=== PATIENT | male | born 1940 | race Caucasian/White ===

== ENCOUNTER 2016-12-31 21:13 | Outpatient (CLI) | payer MEDICARE, OTHER | END 2016-12-31 21:14 | disposition home or self-care (01) | DX: I48.91 Unspecified atrial fibrillation (principal); E03.9 Hypothyroidism, unspecified; E11.9 Type 2 diabetes mellitus without complications; I25.10 Atherosclerotic heart disease of native coronary artery without angina pectoris; N18.9 Chronic kidney disease, unspecified; E78.5 Hyperlipidemia, unspecified; I12.9 Hypertensive chronic kidney disease with stage 1 through stage 4 chronic kidney disease, or unspecified chronic kidney disease ==

== ENCOUNTER 2017-03-03 08:00 | Outpatient (CLI) | payer MEDICARE, OTHER | END 2017-03-03 08:01 | disposition home or self-care (01) | DX: I35.0 Nonrheumatic aortic (valve) stenosis (principal); R79.89 Other specified abnormal findings of blood chemistry ==

== ENCOUNTER 2017-07-16 13:06 | Outpatient (CLI) | payer MEDICARE, OTHER ==
[2017-07-16 13:25] LABS: ALBUMIN/GLOBULIN RATIO 1.1 (1.0-2.2); BILIRUBIN,TOTAL 0.6 mg/dL (0.2-1.0); BUN - BLOOD UREA NITROGEN 50 mg/dL (6-20); CARBON DIOXIDE - CO2 22 mmol/L (21-32); CHLORIDE 111 mmol/L (101-111); CHOL/HDL RATIO 2.3 (<5.0); CHOLESTEROL 68 mg/dL; GFR - MDRD 32 (>89); GLUCOSE 120 mg/dL (70-100); HDL CHOLESTEROL 30 mg/dL; LDL/HDL RATIO 0.7 (<3.6); POTASSIUM 4.3 mmol/L (3.5-5.0); SODIUM 139 mmol/L (135-145); TOTAL PROTEIN 6.6 g/dL (6.7-8.2); TRIGLYCERIDES 80 mg/dL; VLDL CHOLESTEROL 16 mg/dL
[2017-07-16 13:27] LABS: HEMOGLOBIN A1C 0.43 g/dL
[2017-07-16 15:01] LABS: BASOPHILS % (AUTO) 0.5 %; EOSINOPHILS # (AUTO) 0.2 10^3/uL (0.0-0.7); EOSINOPHILS % (AUTO) 4.1 %; HCT - HEMATOCRIT 34.2 % (42.0-52.0); HGB - HEMOGLOBIN 11.2 g/dL (14.0-18.0); LYMPHOCYTES # (AUTO) 1.3 10^3/uL (1.5-3.5); MEAN CORPUSCULAR HEMOGLOBIN 32.8 pg (27.0-31.0); MEAN CORPUSCULAR HGB CONC 32.6 g/dL (32.0-36.0); MEAN CORPUSCULAR VOLUME 100.7 fL (80.0-94.0); MEAN PLATELET VOLUME 10.9 fL (7.4-11.4); MONOCYTES # (AUTO) 0.5 10^3/uL (0.0-1.0); MONOCYTES % (AUTO) 11.4 %; NEUTROPHILS # (AUTO) 2.4 10^3/uL (1.5-6.6); NUCLEATED RED BLOOD CELLS AUTO 0.2 /100WBC; RED CELL DISTRIBUTION WIDTH 16.8 % (12.0-15.0); UNCORRECTED WHITE BLOOD COUNT 4.4 x10^3/uL; WHITE BLOOD COUNT 4.4 x10^3/uL (4.8-10.8)
== END 2017-07-16 13:07 | disposition home or self-care (01) ==
LOC: LAB.WCP 13:06
PROVIDERS: ATTEND Family Medicine
DX: I48.91 Unspecified atrial fibrillation (principal); E11.9 Type 2 diabetes mellitus without complications; N18.9 Chronic kidney disease, unspecified; E03.9 Hypothyroidism, unspecified; E78.5 Hyperlipidemia, unspecified; I12.9 Hypertensive chronic kidney disease with stage 1 through stage 4 chronic kidney disease, or unspecified chronic kidney disease
CPT/HCPCS: 36415; 80053; 80061; 83036; 84443; 85025

== ENCOUNTER 2017-08-13 09:07 | Outpatient (CLI) | payer MEDICARE, OTHER ==
[2017-08-13 13:09] LABS: BILIRUBIN,DIRECT 0.1 mg/dL (0.1-0.5); BILIRUBIN,TOTAL 0.6 mg/dL (0.2-1.0)
== END 2017-08-13 09:08 | disposition home or self-care (01) ==
LOC: LAB.WCP 09:07
PROVIDERS: ATTEND Family Medicine
DX: R74.8 Abnormal levels of other serum enzymes (principal)
CPT/HCPCS: 36415; 80076

== ENCOUNTER 2017-11-13 08:00 | Outpatient (CLI) | payer MEDICARE, OTHER ==
[2017-11-13 12:44] LABS: ALBUMIN 4.2 g/dL (3.2-5.5); ALBUMIN/GLOBULIN RATIO 1.2 (1.0-2.2); BILIRUBIN,TOTAL 0.9 mg/dL (0.2-1.0); CALCIUM 9.4 mg/dL (8.5-10.3); CREATININE 2.5 mg/dL (0.6-1.2); TOTAL PROTEIN 7.6 g/dL (6.7-8.2)
[2017-11-13 13:17] LABS: HB2 TOTAL 12.4 g/dL; HEMOGLOBIN A1C 0.43 g/dL; HEMOGLOBIN A1C % 5.3 % (4.6-6.2)
== END 2017-11-13 08:01 | disposition home or self-care (01) ==
LOC: LAB.WCP 08:00
PROVIDERS: ATTEND Family Medicine
DX: R74.8 Abnormal levels of other serum enzymes (principal); E11.9 Type 2 diabetes mellitus without complications; I48.91 Unspecified atrial fibrillation; E03.9 Hypothyroidism, unspecified; I10 Essential (primary) hypertension
CPT/HCPCS: 36415; 80053; 83036; 84443

== ENCOUNTER 2017-11-18 14:37 | Outpatient (CLI) | payer MEDICARE, OTHER ==
[2017-11-18 19:14] LABS: CALCIUM 9.5 mg/dL (8.5-10.3); CREATININE 2.1 mg/dL (0.6-1.2)
== END 2017-11-18 14:38 | disposition home or self-care (01) ==
LOC: LAB.WCP 14:37
PROVIDERS: ATTEND Family Medicine
DX: N18.9 Chronic kidney disease, unspecified (principal)
CPT/HCPCS: 36415; 80048

== ENCOUNTER 2017-12-19 10:39 | Outpatient (CLI) | payer MEDICARE, OTHER ==
[2017-12-19 12:40] LABS: HGB - HEMOGLOBIN 11.1 g/dL (14.0-18.0); MEAN CORPUSCULAR HEMOGLOBIN 32.2 pg (27.0-31.0); MEAN CORPUSCULAR HGB CONC 33.1 g/dL (32.0-36.0); MEAN CORPUSCULAR VOLUME 97.4 fL (80.0-94.0); MEAN PLATELET VOLUME 10.7 fL (7.4-11.4); RED BLOOD COUNT 3.45 10^6/uL (4.70-6.10); RED CELL DISTRIBUTION WIDTH 15.6 % (12.0-15.0); WHITE BLOOD COUNT 5.7 x10^3/uL (4.8-10.8)
[2017-12-19 12:58] LABS: CREATININE,URINE 77.7 mg/dL; PROTEIN/CREATININE RATIO,URINE 0.2 (<=0.2)
== END 2017-12-19 10:40 | disposition home or self-care (01) ==
LOC: LAB.WCP 10:39
PROVIDERS: ATTEND Internal Medicine Nephrology
DX: D70.9 Neutropenia, unspecified (principal); D63.1 Anemia in chronic kidney disease; R80.9 Proteinuria, unspecified
CPT/HCPCS: 36415; 82570; 84156

== ENCOUNTER 2018-01-21 13:35 | Outpatient (CLI) | payer MEDICARE, OTHER ==
--- NOTE | 2018-01-21 16:37 | XRAY Report ---
ABDOMEN ONE VIEW: 01/21/2018 HISTORY: Ureteral stent followup. COMPARISON: 12/26/[address] FINDINGS: There is a left ureteral stent extending from the region of the left renal pelvis to the urinary bladder. Multiple surgical clips are seen in the abdomen. Vascular calcification is present. Degenerative change in the spine. Minor degenerative change in the hips and sacroiliac joints. Extensive fecal material throughout the colon. IMPRESSION: LEFT URETERAL STENT IN PLACE. TD: 01/21/2018 16:35
== END 2018-01-21 13:36 | disposition home or self-care (01) ==
LOC: DI 13:35
PROVIDERS: ATTEND Specialist
DX: N13.8 Other obstructive and reflux uropathy (principal)
CPT/HCPCS: 74018

== ENCOUNTER 2018-05-20 08:00 | Outpatient (CLI) | payer MEDICARE, OTHER ==
[2018-05-20 12:34] LABS: BASOPHILS % (AUTO) 0.6 %; EOSINOPHILS # (AUTO) 0.2 10^3/uL (0.0-0.7); EOSINOPHILS % (AUTO) 3.8 %; HGB - HEMOGLOBIN 11.3 g/dL (14.0-18.0); LYMPHOCYTES # (AUTO) 1.6 10^3/uL (1.5-3.5); LYMPHOCYTES % (AUTO) 25.3 %; MEAN CORPUSCULAR HEMOGLOBIN 33.2 pg (27.0-31.0); MEAN CORPUSCULAR HGB CONC 33.2 g/dL (32.0-36.0); MEAN CORPUSCULAR VOLUME 99.8 fL (80.0-94.0); MEAN PLATELET VOLUME 11.1 fL (7.4-11.4); MONOCYTES # (AUTO) 0.7 10^3/uL (0.0-1.0); MONOCYTES % (AUTO) 10.2 %; NEUTROPHILS # (AUTO) 3.9 10^3/uL (1.5-6.6); NEUTROPHILS % (AUTO) 60.1 %; PLT - PLATELET COUNT 132 10^3/uL (130-450); RED BLOOD COUNT 3.42 10^6/uL (4.70-6.10); WHITE BLOOD COUNT 6.4 x10^3/uL (4.8-10.8)
[2018-05-20 13:07] LABS: ALBUMIN 3.9 g/dL (3.2-5.5); ALBUMIN/GLOBULIN RATIO 1.1 (1.0-2.2); ALKALINE PHOSPHATASE 32 IU/L (42-121); ALT ALANINE AMINOTRANSFERASE 11 IU/L (10-60); AST ASPARTATE AMINOTRANSFERASE 27 IU/L (10-42); BILIRUBIN,TOTAL 0.5 mg/dL (0.2-1.0); BUN - BLOOD UREA NITROGEN 47 mg/dL (6-20); CALCIUM 9.6 mg/dL (8.5-10.3); CARBON DIOXIDE - CO2 23 mmol/L (21-32); CHLORIDE 110 mmol/L (101-111); CHOL/HDL RATIO 4.1 (<5.0); CHOLESTEROL 120 mg/dL; CREATININE 2.2 mg/dL (0.6-1.2); GFR - MDRD 29 (>89); GLUCOSE 95 mg/dL (70-100); HDL CHOLESTEROL 29 mg/dL; LDL CHOLESTEROL,CALCULATED 49 mg/dL; LDL/HDL RATIO 1.7 (<3.6); SODIUM 140 mmol/L (135-145); TOTAL PROTEIN 7.3 g/dL (6.7-8.2); VLDL CHOLESTEROL 42 mg/dL
[2018-05-20 13:38] LABS: HB2 TOTAL 11.6 g/dL; HEMOGLOBIN A1C 0.41 g/dL; HEMOGLOBIN A1C % 5.4 % (4.6-6.2)
== END 2018-05-20 08:01 ==
LOC: LAB.WCP 08:00
PROVIDERS: ATTEND Family Medicine
DX: E11.9 Type 2 diabetes mellitus without complications (principal); E03.9 Hypothyroidism, unspecified; E78.5 Hyperlipidemia, unspecified; I10 Essential (primary) hypertension
CPT/HCPCS: 36415; 80053; 80061; 83036; 83721; 84443; 85025

== ENCOUNTER 2018-06-18 13:42 | Outpatient (CLI) | payer MEDICARE, OTHER ==
[2018-06-18 18:50] LABS: HGB - HEMOGLOBIN 12.1 g/dL (14.0-18.0); MEAN CORPUSCULAR HEMOGLOBIN 32.7 pg (27.0-31.0); MEAN CORPUSCULAR HGB CONC 33.1 g/dL (32.0-36.0); MEAN PLATELET VOLUME 11.1 fL (7.4-11.4); RED BLOOD COUNT 3.69 10^6/uL (4.70-6.10); RED CELL DISTRIBUTION WIDTH 14.6 % (12.0-15.0); WHITE BLOOD COUNT 5.5 x10^3/uL (4.8-10.8)
[2018-06-18 19:17] LABS: CALCIUM 9.3 mg/dL (8.5-10.3); CREATININE 1.9 mg/dL (0.6-1.2); PHOSPHORUS 3.1 mg/dL (2.5-4.6)
== END 2018-06-18 13:43 | disposition home or self-care (01) ==
LOC: LAB.WCP 13:42
PROVIDERS: ATTEND Internal Medicine Nephrology
DX: N05.9 Unspecified nephritic syndrome with unspecified morphologic changes (principal); D70.9 Neutropenia, unspecified; D63.1 Anemia in chronic kidney disease; E83.30 Disorder of phosphorus metabolism, unspecified; N25.81 Secondary hyperparathyroidism of renal origin
CPT/HCPCS: 36415; 80048; 83970; 84100; 85027

== ENCOUNTER 2018-11-16 08:05 | Outpatient (CLI) | payer MEDICARE, OTHER ==
[2018-11-16 13:05] LABS: BASOPHILS % (AUTO) 0.6 %; EOSINOPHILS # (AUTO) 0.2 10^3/uL (0.0-0.7); EOSINOPHILS % (AUTO) 3.5 %; HGB - HEMOGLOBIN 11.8 g/dL (14.0-18.0); LYMPHOCYTES # (AUTO) 1.7 10^3/uL (1.5-3.5); LYMPHOCYTES % (AUTO) 24.6 %; MEAN CORPUSCULAR HEMOGLOBIN 32.7 pg (27.0-31.0); MEAN CORPUSCULAR HGB CONC 33.7 g/dL (32.0-36.0); MEAN PLATELET VOLUME 10.3 fL (7.4-11.4); MONOCYTES # (AUTO) 0.7 10^3/uL (0.0-1.0); MONOCYTES % (AUTO) 9.7 %; NEUTROPHILS # (AUTO) 4.3 10^3/uL (1.5-6.6); NEUTROPHILS % (AUTO) 61.6 %; PLT - PLATELET COUNT 159 10^3/uL (130-450); RED CELL DISTRIBUTION WIDTH 14.2 % (12.0-15.0)
[2018-11-16 13:27] LABS: ALBUMIN 3.8 g/dL (3.2-5.5); ALKALINE PHOSPHATASE 47 IU/L (42-121); ALT ALANINE AMINOTRANSFERASE 14 IU/L (10-60); AST ASPARTATE AMINOTRANSFERASE 29 IU/L (10-42); BILIRUBIN,TOTAL 0.4 mg/dL (0.2-1.0); BUN - BLOOD UREA NITROGEN 54 mg/dL (6-20); CALCIUM 9.3 mg/dL (8.5-10.3); CARBON DIOXIDE - CO2 23 mmol/L (21-32); CHLORIDE 108 mmol/L (101-111); CHOL/HDL RATIO 3.3 (<5.0); CHOLESTEROL 118 mg/dL; GFR - MDRD 32 (>89); GLUCOSE 105 mg/dL (70-100); HDL CHOLESTEROL 36 mg/dL; LDL CHOLESTEROL,CALCULATED 53 mg/dL; LDL/HDL RATIO 1.5 (<3.6); SODIUM 138 mmol/L (135-145); TOTAL PROTEIN 7.6 g/dL (6.7-8.2); VLDL CHOLESTEROL 29 mg/dL
[2018-11-16 13:54] LABS: HB2 TOTAL 12.7 g/dL; HEMOGLOBIN A1C 0.46 g/dL; HEMOGLOBIN A1C % 5.5 % (4.6-6.2)
== END 2018-11-16 23:59 | disposition home or self-care (01) ==
LOC: LAB.WCP 08:05
PROVIDERS: ATTEND Family Medicine
DX: R74.8 Abnormal levels of other serum enzymes (principal); E11.9 Type 2 diabetes mellitus without complications; E78.5 Hyperlipidemia, unspecified; E03.9 Hypothyroidism, unspecified; I48.91 Unspecified atrial fibrillation
CPT/HCPCS: 36415; 80053; 80061; 82043; 83036; 83721; 84443; 85025

== ENCOUNTER 2019-04-07 08:45 | Outpatient (CLI) | payer MEDICARE, OTHER ==
[2019-04-07 12:28] LABS: BASOPHILS % (AUTO) 0.4 %; EOSINOPHILS # (AUTO) 0.3 10^3/uL (0.0-0.7); EOSINOPHILS % (AUTO) 4.5 %; HGB - HEMOGLOBIN 9.8 g/dL (14.0-18.0); LYMPHOCYTES # (AUTO) 1.5 10^3/uL (1.5-3.5); LYMPHOCYTES % (AUTO) 21.1 %; MEAN CORPUSCULAR HEMOGLOBIN 30.2 pg (27.0-31.0); MEAN CORPUSCULAR HGB CONC 29.9 g/dL (32.0-36.0); MEAN CORPUSCULAR VOLUME 101.2 fL (80.0-94.0); MEAN PLATELET VOLUME 12.7 fL (7.4-11.4); MONOCYTES # (AUTO) 0.9 10^3/uL (0.0-1.0); MONOCYTES % (AUTO) 12.6 %; NEUTROPHILS # (AUTO) 4.4 10^3/uL (1.5-6.6); PLT - PLATELET COUNT 167 10^3/uL (130-450); RED BLOOD COUNT 3.24 10^6/uL (4.70-6.10); RED CELL DISTRIBUTION WIDTH 14.6 % (12.0-15.0); WHITE BLOOD COUNT 7.2 x10^3/uL (4.8-10.8)
[2019-04-07 12:46] LABS: ALBUMIN 3.6 g/dL (3.2-5.5); ALBUMIN/GLOBULIN RATIO 0.9 (1.0-2.2); ALKALINE PHOSPHATASE 39 IU/L (42-121); ALT ALANINE AMINOTRANSFERASE 14 IU/L (10-60); AST ASPARTATE AMINOTRANSFERASE 24 IU/L (10-42); BILIRUBIN,TOTAL 0.6 mg/dL (0.2-1.0); BUN - BLOOD UREA NITROGEN 61 mg/dL (6-20); CALCIUM 9.2 mg/dL (8.5-10.3); CARBON DIOXIDE - CO2 23 mmol/L (21-32); CHLORIDE 105 mmol/L (101-111); CHOL/HDL RATIO 3.6 (<5.0); CHOLESTEROL 111 mg/dL; GFR - MDRD 20 (>89); GLUCOSE 105 mg/dL (70-100); HDL CHOLESTEROL 31 mg/dL; LDL CHOLESTEROL,CALCULATED 38 mg/dL; LDL/HDL RATIO 1.2 (<3.6); SODIUM 142 mmol/L (135-145); TOTAL PROTEIN 7.6 g/dL (6.7-8.2); VLDL CHOLESTEROL 42 mg/dL
[2019-04-07 12:55] LABS: CREATININE,URINE 113.8 mg/dL; MICROALBUM/CREATININE RATIO,UR 96.7 ug/mg (<30.0)
[2019-04-07 12:59] LABS: HB2 TOTAL 10.3 g/dL; HEMOGLOBIN A1C 0.44 g/dL; HEMOGLOBIN A1C % 6.1 % (4.6-6.2)
[2019-04-07 13:34] LABS: FREE T4 (FREE THYROXINE) 0.91 ng/dL (0.58-1.64)
== END 2019-04-07 08:46 | disposition home or self-care (01) ==
LOC: LAB.WCP 08:45
PROVIDERS: ATTEND Family Medicine
DX: E11.29 Type 2 diabetes mellitus with other diabetic kidney complication (principal); I12.9 Hypertensive chronic kidney disease with stage 1 through stage 4 chronic kidney disease, or unspecified chronic kidney disease; N18.9 Chronic kidney disease, unspecified; E78.5 Hyperlipidemia, unspecified; E03.9 Hypothyroidism, unspecified
CPT/HCPCS: 36415; 80053; 80061; 82043; 82570; 83036; 83721; 84439; 84443; 85025

== ENCOUNTER 2019-04-16 13:18 | Outpatient (CLI) | payer MEDICARE, OTHER ==
[2019-04-16 19:23] LABS: ALBUMIN 3.6 g/dL (3.2-5.5); BILIRUBIN,TOTAL 0.4 mg/dL (0.2-1.0); CALCIUM 9.2 mg/dL (8.5-10.3); TOTAL PROTEIN 7.2 g/dL (6.7-8.2)
== END 2019-04-16 13:19 | disposition home or self-care (01) ==
LOC: LAB.WCP 13:18
PROVIDERS: ATTEND Family Medicine
DX: I12.9 Hypertensive chronic kidney disease with stage 1 through stage 4 chronic kidney disease, or unspecified chronic kidney disease (principal); N18.9 Chronic kidney disease, unspecified
CPT/HCPCS: 36415; 80053

== ENCOUNTER 2019-05-17 15:00 | Outpatient (CLI) | payer MEDICARE, OTHER ==
[2019-05-17 19:48] LABS: FREE T4 (FREE THYROXINE) 0.87 ng/dL (0.58-1.64)
== END 2019-05-17 23:59 | disposition home or self-care (01) ==
LOC: LAB.WCP 15:00
PROVIDERS: ATTEND Family Medicine
DX: E03.9 Hypothyroidism, unspecified (principal)
CPT/HCPCS: 36415; 84439; 84443

== ENCOUNTER 2019-05-31 08:59 | Outpatient (CLI) | payer MEDICARE, OTHER ==
[2019-05-31 12:48] LABS: CALCIUM 9.3 mg/dL (8.5-10.3); CREATININE 1.5 mg/dL (0.6-1.2); PHOSPHORUS 3.1 mg/dL (2.5-4.6)
== END 2019-05-31 23:59 | disposition home or self-care (01) ==
LOC: LAB.WCP 08:59
PROVIDERS: ATTEND Internal Medicine Nephrology
DX: N05.9 Unspecified nephritic syndrome with unspecified morphologic changes (principal); E83.30 Disorder of phosphorus metabolism, unspecified; N25.81 Secondary hyperparathyroidism of renal origin
CPT/HCPCS: 36415; 80048; 83970; 84100

== ENCOUNTER 2019-06-17 08:00 | Outpatient (CLI) | payer MEDICARE, OTHER ==
[2019-06-17 20:18] LABS: FREE T4 (FREE THYROXINE) 0.88 ng/dL (0.58-1.64)
== END 2019-06-17 23:59 | disposition home or self-care (01) ==
LOC: LAB.WCP 08:00
PROVIDERS: ATTEND Family Medicine
DX: E03.9 Hypothyroidism, unspecified (principal)
CPT/HCPCS: 36415; 84439; 84443

== ENCOUNTER 2019-06-30 16:38 | Outpatient (CLI) | payer MEDICARE, OTHER ==
--- NOTE | 2019-07-01 10:50 | XRAY Report ---
Reason: OTHER OBSTRUCTIVE DEFECTS OF RENAL PELVIS AND URET Procedure Date: 06/30/2019 Accession Number: [id number] / [id number] Procedure: XR - Abdomen 1 View X-Ray CPT Code: 31259 FULL RESULT: EXAM: ABDOMEN RADIOGRAPHY EXAM DATE: 06/30/2019 05:02 PM. CLINICAL HISTORY: Other obstructive defects of renal pelvis and ureter. COMPARISON: ABDOMEN 1 VIEW 01/21/2018 2:04 PM. TECHNIQUE: 1 view. FINDINGS: Bowel Gas Pattern: Within normal limits. No dilated loops. Other: Left ureteral stent in place. No definitive stone disease with surgical clips noted. Left common iliac vascular stent. IMPRESSION: Left ureteral stent in place. RADIA
== END 2019-06-30 16:39 | disposition home or self-care (01) ==
LOC: DI 16:38
PROVIDERS: ATTEND Specialist
DX: N18.9 Chronic kidney disease, unspecified (principal); Q62.39 Other obstructive defects of renal pelvis and ureter
CPT/HCPCS: 74018

== ENCOUNTER 2019-12-20 08:00 | Outpatient (CLI) | payer MEDICARE, OTHER ==
[2019-12-20 13:07] LABS: HB2 TOTAL 11.6 g/dL; HEMOGLOBIN A1C 0.6 g/dL; HEMOGLOBIN A1C % 6.9 % (4.6-6.2)
[2019-12-20 13:53] LABS: CALCIUM 9.3 mg/dL (8.5-10.3); CREATININE 2.6 mg/dL (0.6-1.2)
[2019-12-20 14:35] LABS: CREATININE,URINE 49.9 mg/dL; MICROALBUM/CREATININE RATIO,UR 2376.8 ug/mg (<30.0); MICROALBUMIN,URINE 118.6 mg/dL (0-300.0)
== END 2019-12-20 23:59 | disposition home or self-care (01) ==
LOC: LAB.WCP 08:00
PROVIDERS: ATTEND Family Medicine
DX: I11.0 Hypertensive heart disease with heart failure (principal); I50.9 Heart failure, unspecified; E11.29 Type 2 diabetes mellitus with other diabetic kidney complication; I27.20 Pulmonary hypertension, unspecified; E03.9 Hypothyroidism, unspecified
CPT/HCPCS: 36415; 80048; 82043; 82570; 83036

== ENCOUNTER 2020-02-11 14:30 | Outpatient (CLI) | payer MEDICARE, OTHER | END 2020-02-11 23:59 | disposition home or self-care (01) | LOC: LAB.R 14:30 | PROVIDERS: ATTEND Family Medicine | DX: S81.802D Unspecified open wound, left lower leg, subsequent encounter (principal) | CPT/HCPCS: 87070; 87205 ==

== ENCOUNTER 2020-03-23 08:57 | Outpatient (CLI) | payer MEDICARE, OTHER ==
[2020-03-23 12:35] LABS: CALCIUM 9.1 mg/dL (8.5-10.3); CREATININE 2.5 mg/dL (0.6-1.2)
[2020-03-23 12:52] LABS: HB2 TOTAL 11.8 g/dL; HEMOGLOBIN A1C 0.49 g/dL
[2020-03-23 13:35] LABS: CREATININE,URINE 83.9 mg/dL; MICROALBUM/CREATININE RATIO,UR 1393.3 ug/mg (<30.0); MICROALBUMIN,URINE 116.9 mg/dL (0-300.0)
== END 2020-03-23 23:59 | disposition home or self-care (01) ==
LOC: LAB.WCP 08:57
PROVIDERS: ATTEND Family Medicine
DX: E11.22 Type 2 diabetes mellitus with diabetic chronic kidney disease (principal); I12.9 Hypertensive chronic kidney disease with stage 1 through stage 4 chronic kidney disease, or unspecified chronic kidney disease; N18.9 Chronic kidney disease, unspecified
CPT/HCPCS: 36415; 80048; 82043; 82570; 83036

== ENCOUNTER 2020-05-04 13:44 | Outpatient (CLI) | payer MEDICARE, OTHER ==
--- NOTE | 2020-05-04 15:06 | XRAY Report ---
PROCEDURE: Abdomen 1 View X-Ray INDICATIONS: CALCULUS OF KIDNEY TECHNIQUE: 1 view of the abdomen were acquired. COMPARISON: Plain film abdomen 06/30/2019 FINDINGS: Surgical changes and devices: Ureteral stent on the left, surgical clips at the midline near this are a.. Bowel: No pneumoperitoneum. The bowel gas pattern is normal. Soft tissues: No masses; visualized solid organ contours appear normal in size. No suspicious abdom inal calcifications. Bones: No suspicious bony abnormalities. IMPRESSION: Unilateral left-sided ureteral stent with double pigtails in normal position above and b elow. Normal bowel gas pattern. A urinary tract stone is not currently seen. Reviewed by: Leroy Mora MD on 05/04/2020 3:04 PM PDT Approved by: Leroy Mora MD on 05/04/2020 3:04 PM PDT Station ID: [id number]
== END 2020-05-04 13:45 | disposition home or self-care (01) ==
LOC: DI 13:44
PROVIDERS: ATTEND Specialist
DX: Z96.0 Presence of urogenital implants (principal)
CPT/HCPCS: 74018

== ENCOUNTER 2020-05-23 08:00 | Outpatient (CLI) | payer MEDICARE, OTHER ==
[2020-05-23 12:40] LABS: PHOSPHORUS 3.3 mg/dL (2.5-4.6)
[2020-05-23 12:51] LABS: HGB - HEMOGLOBIN 11.2 g/dL (14.0-18.0); MEAN CORPUSCULAR HEMOGLOBIN 30.9 pg (27.0-31.0); MEAN CORPUSCULAR HGB CONC 31.8 g/dL (32.0-36.0); MEAN CORPUSCULAR VOLUME 97.2 fL (80.0-94.0); RED BLOOD COUNT 3.62 10^6/uL (4.70-6.10); RED CELL DISTRIBUTION WIDTH 13.9 % (12.0-15.0); WHITE BLOOD COUNT 6.2 x10^3/uL (4.8-10.8)
== END 2020-05-23 23:59 | disposition home or self-care (01) ==
LOC: LAB.WCP 08:00
PROVIDERS: ATTEND Internal Medicine Nephrology
DX: N05.9 Unspecified nephritic syndrome with unspecified morphologic changes (principal); D70.9 Neutropenia, unspecified; D63.1 Anemia in chronic kidney disease; E83.30 Disorder of phosphorus metabolism, unspecified; N25.81 Secondary hyperparathyroidism of renal origin
CPT/HCPCS: 36415; 80048; 83519; 83970; 84100; 85027

== ENCOUNTER 2020-09-19 10:42 | Outpatient (CLI) | payer MEDICARE, OTHER ==
[2020-09-19 18:51] LABS: CALCIUM 9.5 mg/dL (8.5-10.3); CREATININE 2.2 mg/dL (0.6-1.2)
== END 2020-09-19 10:43 | disposition home or self-care (01) ==
LOC: LAB.N 10:42
PROVIDERS: ATTEND Internal Medicine Nephrology
DX: N05.9 Unspecified nephritic syndrome with unspecified morphologic changes (principal); I50.32 Chronic diastolic (congestive) heart failure
CPT/HCPCS: 36415; 80048; 83880

== ENCOUNTER 2020-09-25 15:00 | Outpatient (CLI) | payer MEDICARE, OTHER | END 2020-09-25 23:59 | disposition home or self-care (01) | LOC: DI.N 15:00 | PROVIDERS: ATTEND Nurse Practitioner | DX: R21 Rash and other nonspecific skin eruption (principal) | CPT/HCPCS: 81599; 87070; 87077; 87147; 87186 ==

== ENCOUNTER 2020-12-14 08:00 | Outpatient (CLI) | payer MEDICARE, OTHER ==
[2020-12-14 12:48] LABS: HEMOGLOBIN A1c% 7.6 % (4.27-6.07)
[2020-12-14 13:17] LABS: BASOPHILS # (AUTO) 0.1 10^3/uL (0.0-0.1); BASOPHILS % (AUTO) 0.7 %; EOSINOPHILS # (AUTO) 0.2 10^3/uL (0.0-0.7); EOSINOPHILS % (AUTO) 2.8 %; HGB - HEMOGLOBIN 11.3 g/dL (14.0-18.0); LYMPHOCYTES # (AUTO) 1.3 10^3/uL (1.5-3.5); LYMPHOCYTES % (AUTO) 17.6 %; MEAN CORPUSCULAR HEMOGLOBIN 29.9 pg (27.0-31.0); MEAN CORPUSCULAR HGB CONC 31.3 g/dL (32.0-36.0); MEAN CORPUSCULAR VOLUME 95.5 fL (80.0-94.0); MEAN PLATELET VOLUME 12.5 fL (7.4-11.4); MONOCYTES # (AUTO) 0.8 10^3/uL (0.0-1.0); MONOCYTES % (AUTO) 10.1 %; NEUTROPHILS # (AUTO) 5.2 10^3/uL (1.5-6.6); PLT - PLATELET COUNT 218 10^3/uL (130-450); RED BLOOD COUNT 3.78 10^6/uL (4.70-6.10); RED CELL DISTRIBUTION WIDTH 14.8 % (12.0-15.0); WHITE BLOOD COUNT 7.6 x10^3/uL (4.8-10.8)
[2020-12-14 13:24] LABS: ALBUMIN 3.6 g/dL (3.2-5.5); ALKALINE PHOSPHATASE 52 IU/L (42-121); ALT ALANINE AMINOTRANSFERASE 25 IU/L (10-60); AST ASPARTATE AMINOTRANSFERASE 46 IU/L (10-42); BILIRUBIN,TOTAL 0.6 mg/dL (0.2-1.0); BUN - BLOOD UREA NITROGEN 45 mg/dL (6-20); CALCIUM 9.4 mg/dL (8.5-10.3); CARBON DIOXIDE - CO2 26 mmol/L (21-32); CHLORIDE 97 mmol/L (101-111); CHOL/HDL RATIO 4.5 (<5.0); CHOLESTEROL 165 mg/dL; CREATININE 1.9 mg/dL (0.6-1.2); GLUCOSE 201 mg/dL (70-100); HDL CHOLESTEROL 37 mg/dL; LDL CHOLESTEROL,CALCULATED 62 mg/dL; LDL/HDL RATIO 1.7 (<3.6); TOTAL PROTEIN 7.3 g/dL (6.7-8.2); VLDL CHOLESTEROL 66 mg/dL
[2020-12-14 14:17] LABS: THYROID STIMULATING HORMONE 7.27 uIU/mL (0.34-5.60)
[2020-12-14 14:18] LABS: FREE T3 3.35 pg/mL (2.5-3.9)
[2020-12-14 14:19] LABS: FREE T4 (FREE THYROXINE) 1.2 ng/dL (0.58-1.64)
== END 2020-12-14 23:59 | disposition home or self-care (01) ==
LOC: LAB.WCP 08:00
PROVIDERS: ATTEND Family Medicine
DX: I12.9 Hypertensive chronic kidney disease with stage 1 through stage 4 chronic kidney disease, or unspecified chronic kidney disease (principal); E11.22 Type 2 diabetes mellitus with diabetic chronic kidney disease; N18.9 Chronic kidney disease, unspecified; E03.9 Hypothyroidism, unspecified; E78.5 Hyperlipidemia, unspecified; G25.81 Restless legs syndrome; G47.33 Obstructive sleep apnea (adult) (pediatric); I71.4 Abdominal aortic aneurysm, without rupture; I25.10 Atherosclerotic heart disease of native coronary artery without angina pectoris; R09.89 Other specified symptoms and signs involving the circulatory and respiratory systems; I73.9 Peripheral vascular disease, unspecified; N40.1 Benign prostatic hyperplasia with lower urinary tract symptoms; N13.8 Other obstructive and reflux uropathy; K21.9 Gastro-esophageal reflux disease without esophagitis
CPT/HCPCS: 36415; 80053; 80061; 83036; 83721; 84439; 84443; 84481; 85025

== ENCOUNTER 2021-01-09 13:10 | Outpatient (CLI) | payer MEDICARE, OTHER | END 2021-01-09 13:11 | disposition EMS.NT | LOC: EMS 13:10 | DX: R06.02 Shortness of breath (principal); I10 Essential (primary) hypertension ==

== ENCOUNTER 2021-03-02 07:59 | Outpatient (CLI) | payer MEDICARE, OTHER | END 2021-03-02 08:00 | disposition critical access hospital (66) | LOC: EMS 07:59 | DX: R06.02 Shortness of breath (principal); R07.89 Other chest pain | CPT/HCPCS: A0425; A0429 ==

== ENCOUNTER 2021-03-02 08:15 | Emergency (ER) | payer MEDICARE, OTHER ==
--- NOTE | 2021-03-02 08:31 | ED Physician Documentation ---
PD HPI DYSPNEA - Stated complaint Stated Complaint: SOA - History obtained from History obtained from: Patient, EMS - History of Present Illness Timing - onset: Yesterday Timing - onset during: Rest Timing - duration: Days (2) Timing - details: Gradual onset, Still present Inciting event(s): Other (The patient went for a procedure yesterday on his face did a bit more physical activity than his usual had some nervousness associated with this and some dry heaves prior to the procedure. He had some skin work on his face.) Improved by: BiPAP / CPAP Worsened by: Exertion Associated symptoms: No: Fever, Cough, Hemoptysis, Chest pain / discomfort Similar symptoms before: No diagnosis Recently seen: Clinic - Additional information Additional information: 80-year-old male with history of coronary artery disease and a prior history of coronary artery bypass grafting, a history of atrial fibrillation, hypertension who is s/p cardiac arrest 6 years ago, had a procedure done on his face yesterday in the field placement director office. He states that he was a bit nervous prior to that and vomited and that throughout the day yesterday he began develop some shortness of breath. He has vague symptomatology of chest pressure which he is not willing to endorse. Review of Systems Constitutional: denies: Fever Eyes: denies: Decreased vision Ears: denies: Ear pain Nose: denies: Congestion Throat: denies: Sore throat Cardiac: denies: Chest pain / pressure, Palpitations, Pedal edema, Calf pain Respiratory: reports: Dyspnea. denies: Cough, Wheezing GI: reports: Nausea, Vomiting. denies: Abdominal Pain : denies: Dysuria, Frequency Skin: denies: Rash Musculoskeletal: denies: Neck pain, Back pain, Extremity pain, Extremity swelling Neurologic: denies: Generalized weakness, Focal weakness, Numbness PD PAST MEDICAL HISTORY - Past Medical History Cardiovascular: Hypertension, High cholesterol Respiratory: Pneumonia, Shortness of breath Endocrine/Autoimmune: Type 2 diabetes, HyPOthyroidism GI: Ulcers : Benign prostate hypertrophy HEENT: None Psych: None Musculoskeletal: None Derm: None - Past Surgical History Past Surgical History: Yes Cardiovascular: Coronary stent - Present Medications Home Medications: Ambulatory Orders Medication Instructions Recorded Confirmed Aspirin [Aspir 81] 81 mg PO DAILY PRN 02/25/15 03/02/21 Carvedilol [Coreg] 3.125 mg PO BID 02/25/15 03/02/21 Fenofibrate Nanocrystallized 145 mg PO DAILY 02/25/15 03/02/21 [Tricor] Levothyroxine [Synthroid] 112 mcg PO QDAC 02/25/15 03/02/21 Multivitamin with Minerals 1 each PO DAILY 02/25/15 03/02/21 [Multiple Vitamin] Rosuvastatin Calcium [Crestor] 20 mg PO DAILY 02/25/15 03/02/21 Tamsulosin [Flomax] 0.4 mg PO DAILY 02/25/15 03/02/21 Acetaminophen [Tylenol Extra 1 - 2 tab PO Q8HR PRN 03/15/20 03/02/21 Strength] Ascorbic Acid [Vitamin C] 1 tab PO DAILY 03/15/20 03/02/21 Finasteride 1 tab PO QPM 03/15/20 03/02/21 Niacin 1 tab PO QID 03/15/20 03/02/21 Nitroglycerin [Nitrostat] 1 tab PO DAILY PRN 03/15/20 03/02/21 Pramipexole Di-HCl [Mirapex] 1 tab PO DAILY 03/15/20 03/02/21 Sertraline [Zoloft] 1 tab PO DAILY 03/15/20 03/02/21 Vitamin B Complex 1 cap PO DAILY 03/15/20 03/02/21 amLODIPine [Norvasc] 10 mg PO DAILY 03/15/20 03/02/21 diphenhydrAMINE [Benadryl] 1 cap PO Q6HR PRN 03/15/20 03/02/21 hydrALAZINE [Apresoline] 1 tab PO DAILY 03/15/20 03/02/21 traMADol [Ultram] 50 mg PO Q8HR 03/15/20 03/02/21 Diltiazem HCl [Diltiazem 12Hr ER] 1 cap PO DAILY 03/02/21 03/02/21 Furosemide [Lasix] 1 tab PO DAILY 03/02/21 03/02/21 Insulin Glargine [Lantus Solostar] 25 unit SQ HS 03/02/21 03/02/21 Insulin Lispro [Humalog] 0 - 6 units SQ TID 03/02/21 03/02/21 Isosorbide Mononitrate [Isosorbide 1 tab PO DAILY 03/02/21 03/02/21 Mononitrate ER] Losartan Potassium [Cozaar] 1 tab PO DAILY 03/02/21 03/02/21 Pantoprazole [Protonix] 1 tab PO BID 03/02/21 03/02/21 Rivaroxaban [Xarelto] 1 tab PO DAILY 03/02/21 03/02/21 - Allergies Allergies/Adverse Reactions: Allergies Allergy/AdvReac Type Severity Reaction Status Date / Time No Known Drug Allergies Allergy Verified 03/02/21 08:27 - Social History Does the pt smoke?: No Smoking Status: Never smoker Does the pt drink ETOH?: No Does the pt have substance abuse?: No - Immunizations Immunizations are current?: Yes - POLST Patient has POLST: No PD ED PE NORMAL - Vitals Vital signs reviewed: Yes (tachy and tachypneic with hypertension ) - General General: Alert and oriented X 3, Well developed/nourished, Other (anxious appearing) - HEENT HEENT: PERRL, EOMI, Other (There are bandages to the right side of the face) - Neck Neck: Supple, no meningeal sign, No bony TTP - Cardiac Cardiac: Other (tachy and regular) - Respiratory Respiratory: Clear bilaterally, Other (tachypneic) - Abdomen Abdomen: Soft, Non tender - Back Back: No CVA TTP, No spinal TTP - Derm Derm: Normal color, Warm and dry, No rash - Extremities Extremities: No deformity, No edema - Neuro Neuro: housing relocation 2-12 intact, No motor deficit, No sensory deficit, Normal speech Eye Opening: Spontaneous Motor: Obeys Commands Verbal: Oriented GCS Score: 15 - Psych Psych: Normal mood, Normal affect Results - Vitals Vitals: Vital Signs - 24 hr 03/02/21 03/02/21 03/02/21 08:16 09:07 09:16 Temperature 36.0 C L Heart Rate 121 H 121 H Respiratory 29 H 27 H Rate Blood Pressure 220/101 H O2 Saturation 95 95 93 03/02/21 03/02/21 03/02/21 09:17 09:54 10:08 Temperature Heart Rate 88 91 Respiratory 27 H 25 H Rate Blood Pressure 164/72 H O2 Saturation 97 98 97 03/02/21 03/02/21 03/02/21 12:22 12:32 13:26 Temperature Heart Rate 92 85 90 Respiratory 20 19 21 Rate Blood Pressure 188/94 H 163/79 H 148/92 H O2 Saturation 98 98 98 Oxygen O2 Source [] Nasal cannula O2 Source [] Nasal cannula O2 Source Nasal cannula Oxygen Flow Rate 2 - EKG (time done) 0825 Rate: Rate (enter#) (121) Rhythm: Sinus tachycardia Intervals: RBBB Ischemia: ST depression Compare to prior EKG: Changed from prior EKG (SPT 03-09-2015 rate has increased and the ST depression has developed. ) Computer interpretation: Agree with computer 1109 Rate: Rate (enter#) (97) Rhythm: Atrial flutter Intervals: RBBB Ischemia: Normal ST segments Compare to prior EKG: Changed from prior EKG (SPT earlier today the previously seen ST depression is resovled and the rate is slower.) Computer interpretation: Agree with computer - Labs Labs: Laboratory Tests 03/02/21 03/02/21 03/02/21 08:47 08:47 08:47 WBC 7.5 RBC 3.74 L Hgb 10.8 L Hct 34.7 L MCV 92.8 MCH 28.9 MCHC 31.1 L RDW 16.3 H Plt Count 190 MPV 12.1 H Neut # (Auto) 5.4 Lymph # (Auto) 1.0 L [place] # (Auto) 0.8 Eos # (Auto) 0.2 Baso # (Auto) 0.0 Absolute Nucleated RBC 0.00 Nucleated RBC % 0.0 Sodium 137 Potassium 4.0 Chloride 105 Carbon Dioxide 21 Anion Gap 11.0 BUN 62 H Creatinine 1.9 H Estimated GFR (MDRD) 34 L Glucose 172 H Calcium 9.0 Total Bilirubin 0.3 AST 56 H ALT 21 Alkaline Phosphatase 46 Troponin I High Sens 1102.1 H* B-Natriuretic Peptide Total Protein 7.6 Albumin 3.6 Globulin 4.0 Albumin/Globulin Ratio 0.9 L Lipase 29 Nasal Adenovirus (PCR) Nasal B. parapertussis DNA (PCR) Nasal Coronavir 229E PCR Nasal Coronavir HKU1 PCR Nasal Coronavir NL63 PCR Nasal Coronavir OC43 PCR Nasal Enterovir/Rhinovir PCR Nasal Influenza B PCR Nasal Influenza A PCR Nasal Parainfluen 1 PCR Nasal Parainfluen 2 PCR Nasal Parainfluen 3 PCR Nasal Parainfluen 4 PCR Nasal RSV (PCR) Nasal B.pertussis DNA PCR Nasal C.pneumoniae (PCR) Brandin Human Metapneumo PCR Nasal M.pneumoniae (PCR) Nasal SARS-CoV-2 (PCR) 03/02/21 03/02/21 03/02/21 08:47 10:27 11:14 WBC RBC Hgb Hct MCV MCH MCHC RDW Plt Count MPV Neut # (Auto) Lymph # (Auto) [place] # (Auto) Eos # (Auto) Baso # (Auto) Absolute Nucleated RBC Nucleated RBC % Sodium Potassium Chloride Carbon Dioxide Anion Gap BUN Creatinine Estimated GFR (MDRD) Glucose Calcium Total Bilirubin AST ALT Alkaline Phosphatase Troponin I High Sens 2920.8 H* B-Natriuretic Peptide 560 H Total Protein Albumin Globulin Albumin/Globulin Ratio Lipase Nasal Adenovirus (PCR) NOT DETECTED Nasal B. parapertussis DNA (PCR) NOT DETECTED Nasal Coronavir 229E PCR NOT DETECTED Nasal Coronavir HKU1 PCR NOT DETECTED Nasal Coronavir NL63 PCR NOT DETECTED Nasal Coronavir OC43 PCR NOT DETECTED Nasal Enterovir/Rhinovir PCR NOT DETECTED Nasal Influenza B PCR NOT DETECTED Nasal Influenza A PCR NOT DETECTED Nasal Parainfluen 1 PCR NOT DETECTED Nasal Parainfluen 2 PCR NOT DETECTED Nasal Parainfluen 3 PCR NOT DETECTED Nasal Parainfluen 4 PCR NOT DETECTED Nasal RSV (PCR) NOT DETECTED Nasal B.pertussis DNA PCR NOT DETECTED Nasal C.pneumoniae (PCR) NOT DETECTED Brandin Human Metapneumo PCR NOT DETECTED Nasal M.pneumoniae (PCR) NOT DETECTED Nasal SARS-CoV-2 (PCR) NOT DETECTED Procedures - IVC sono (time) 0820 Bedside IVC sono: IVC measures (cm) (1.27), IVC collapsed c insp (cm) (complete), Dehydration (est 1 liter deficit) PD MEDICAL DECISION MAKING - ED course Complexity details: reviewed old records, reviewed results, re-evaluated patient, considered differential, d/w patient, d/w family ED course: 80-year-old male with history of coronary artery disease intermittent atrial fibrillation who is s/p CABG and has a history of diabetes hypertension had a procedure done on his face yesterday and today he is found to be tachycardic and short of breath. On initial evaluation I evaluated the patient's inferior vena cava and found this to be collapsing and the patient was administered intravenous fluid. This did not change the patient's heart rate significantly and he remained tachycardic at about 120. He was administered 20 mg of Cardizem intravenously with reduction in his heart rate into the 90s. The patient's symptoms are now resolved. He does have an elevated troponin in the 1100 range. I initially sought immediate transfer of the patient to his bias cutter helper and found that there were no beds available at [facility] or [facility]. The patient did not want to go to another hospital. I consulted the on-call bias cutter helper for Dr. Erna Downs who recommended we keep the patient in our facility, trend his troponin and if no improvement or worsening consider transfer. The patient has poor baseline renal function. The patient is currently without symptoms and has a reason for his elevated troponin with overnight tachycardia.A repeat electrocardiogram shows resolution of the previous ST depression and a repeat troponin comes back at 2920. Dr. Blandon our hospitalist here came to evaluate the patient and the patient at initially was refusing transfer and after reconsideration he has agreed to transfer. We will transfer the patient to [facility] to their emergency department as no beds are available at [facility] or [facility] currently. Departure - Departure Disposition: 02 Transfer Acute Care Hosp Clinical Impression: NSTEMI (non-ST elevated myocardial infarction), Dehydration Discharge Date/Time: 03/02/21 14:03
[2021-03-02] MEDS ORDERED: SODIUM CHLORIDE 0.9% 1,000 ML IV STA (08:36)
--- OUTSIDE RECORDS SUMMARY | 2021-03-02 08:50 | EXTERNAL MEDICAL SUMMARY RPT | Continuity of Care Document ---
: Demographics Phone Unavailable Preferred Language Greenlandic Marital Status Unknown Gnosticist Affiliation Unknown Race Unknown Ethnic Group Unknown Author Organization [place] Address [address] [phone] Phone Care Team Providers Name Role Phone Chetan Campos Unavailable Unavailable Medications date description facility 20210212 Oxycodone Hydrochloride 5 MG Oral Table [facility] 20210123 Hydralazine Hydrochloride 50 MG Oral [facility] 20426044 Pramipexole dihydrochloride 0.125 MG Or al Tablet [facility] [id number] 3 ML Insulin Glargine 100 UNT/ML Prefil led [facility] [id number] 24 HR Isosorbide Mononitrate 60 MG Exte [facility] Tablet 59072286 Furosemide 40 MG Oral Tablet [facility] [id number] Acetaminophen 325 MG Oral Capsule [facility] 10889210 Nitroglycerin 0.4 MG Sublingual Tablet [facility] 20210123 Hydralazine Hydrochloride 50 MG Oral [facility] 20210123 Pramipexole dihydrochloride 0.125 MG Or al Tablet [facility] 03852301 3 ML Insulin Glargine 100 UNT/ML Prefil led [facility] [id number] 24 HR Isosorbide Mononitrate 60 MG Exte [facility] Tablet 91907021 Furosemide 40 MG Oral Tablet [facility] 38101352 Acetaminophen 325 MG Oral Capsule [facility] 06509630 Nitroglycerin 0.4 MG Sublingual Tablet [facility] Problems date description facility [id number] 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 20210209 Encounter for screening for other viral diseases [facility] Procedures date description facility [id number] [facility] [id number] [facility] [id number] [facility] 20210123 [facility] 20210123 [facility] Vital Signs date measurement value source 20210123 weight_standard 131.09 lb 20210123 weight_metric 59.46 kg 20210123 height_standard 70 in 20210123 height_metric 177.8 cm 20210123 BP_systolic 129 mm[Hg] 20210123 BP_diastolic 47 mm[Hg] 20210123 BMI 41.4 kg/m2 20210209 temperature_standard 98.1 F 20210209 temperature_metric 36.72 C 20210209 heart_rate 96 /min 20210212 weight_standard 128.82 lb 20210212 weight_metric 58.43 kg 20210212 temperature_standard 97.8 F 20210212 temperature_metric 36.56 C 20210212 respiration_rate 18 /min 20210212 height_standard 70 in 20210212 height_metric 177.8 cm 20210212 heart_rate 66 /min 20210212 BP_systolic 157 mm[Hg] 20210212 BP_diastolic 66 mm[Hg] 20210212 BMI 40.7 kg/m2
--- NOTE | 2021-03-02 08:53 | XRAY Report ---
PROCEDURE: Chest 1 View X-Ray INDICATIONS: chest pain TECHNIQUE: One view of the chest was acquired. COMPARISON: 08/29/2015 FINDINGS: Surgical changes and devices: Median sternotomy wires. Lungs and pleura: No pleural effusions or pneumothorax. Lungs are clear. Mediastinum: Mediastinal contours appear normal. Heart size is normal. Bones and chest wall: No suspicious bony lesions. Overlying soft tissues appear unremarkable. IMPRESSION: No acute cardiopulmonary disease process. Reviewed by: Vinita Garcia MD, PhD on 03/02/2021 8:52 AM PDT Approved by: Vinita Garcia MD, PhD on 03/02/2021 8:52 AM PDT Station ID: [id number]
[2021-03-02 08:54] LABS: BASOPHILS % (AUTO) 0.4 %; EOSINOPHILS # (AUTO) 0.2 10^3/uL (0.0-0.7); EOSINOPHILS % (AUTO) 2.3 %; HCT - HEMATOCRIT 34.7 % (42.0-52.0); HGB - HEMOGLOBIN 10.8 g/dL (14.0-18.0); LYMPHOCYTES % (AUTO) 13.8 %; MEAN CORPUSCULAR HEMOGLOBIN 28.9 pg (27.0-31.0); MEAN CORPUSCULAR HGB CONC 31.1 g/dL (32.0-36.0); MEAN CORPUSCULAR VOLUME 92.8 fL (80.0-94.0); MEAN PLATELET VOLUME 12.1 fL (7.4-11.4); MONOCYTES # (AUTO) 0.8 10^3/uL (0.0-1.0); MONOCYTES % (AUTO) 10.7 %; NEUTROPHILS # (AUTO) 5.4 10^3/uL (1.5-6.6); NEUTROPHILS % (AUTO) 72.1 %; PLT - PLATELET COUNT 190 10^3/uL (130-450); RED BLOOD COUNT 3.74 10^6/uL (4.70-6.10); RED CELL DISTRIBUTION WIDTH 16.3 % (12.0-15.0); WHITE BLOOD COUNT 7.5 x10^3/uL (4.8-10.8)
[2021-03-02 09:09] LABS: ALBUMIN 3.6 g/dL (3.2-5.5); ALBUMIN/GLOBULIN RATIO 0.9 (1.0-2.2); BILIRUBIN,TOTAL 0.3 mg/dL (0.2-1.0); CREATININE 1.9 mg/dL (0.6-1.2); TOTAL PROTEIN 7.6 g/dL (6.7-8.2)
[2021-03-02] MEDS ORDERED: diltiaZEM INJ 5 MG/ML VIAL IVP STA (09:33)
[2021-03-02 11:42] LABS: B. PARAPERTUSSIS- RESP PCR PAN NOT DETECTED; B. PERTUSSIS- RESP PCR PANEL NOT DETECTED; C. PNEUMONIAE- RESP PCR PANEL NOT DETECTED; CORONAVIRUS 229E-RESP PCR NOT DETECTED; CORONAVIRUS HKU1-RESP PCR NOT DETECTED; CORONAVIRUS NL63-RESP PCR NOT DETECTED; CORONAVIRUS OC43-RESP PCR NOT DETECTED; HUMAN METAPNEUMOVIRUS NOT DETECTED; INFLUENZA A- RESP PCR PANEL NOT DETECTED; INFLUENZA B - RESP PCR PANEL NOT DETECTED; M. PNEUMONIAE- RESP PCR PANEL NOT DETECTED; PARAINFLUENZA VIRUS 1 NOT DETECTED; PARAINFLUENZA VIRUS 2 NOT DETECTED; PARAINFLUENZA VIRUS 3 NOT DETECTED; PARAINFLUENZA VIRUS 4 NOT DETECTED; RHINOVIRUS/ENTEROVIRUS NOT DETECTED; RSV- RESP PCR PANEL NOT DETECTED; SARS-CoV-2 -RESP PCR PANEL NOT DETECTED
[2021-03-02] MEDS ORDERED: ASPIRIN CHEW 81 MG TABLET PO STA (12:57)
[2021-03-02 13:27] VITALS: BP 148/92
--- NOTE | 2021-03-02 16:05 | CONSULTATION NOTE ---
Referring Provider Name of Referring Provider:: Dr. 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 He states he had a skin procedure done at a dermatology office in [place] yesterday. He woke up feeling a little bit short of breath but proceeded with the procedure. He states since then, his dyspnea has become more prominent. It is worse with exertion and is also present at rest. He will have an occasional nonproductive cough. Denies any fevers, chills. He has not noticed any worsening lower extremity edema. He denies any chest pain. His daughter tells me that he was complaining of chest pressure over the past 2 to 3 days. In the emergency department, he reportedly had an EKG initially which showed atrial flutter with a right bundle branch block and ST depressions in the lateral leads. His rates were in the 110s. He was given diltiazem IV with improvement in his heart rates. His initial troponin came back at 1100. A repeat EKG was obtained as his heart rate decreased which showed atrial flutter with right bundle branch block and improvement in the ST depressions. A repeat troponin checked about 2 hours later came back at nearly 3000. The emergency department provider did [facility] [place] but unfortunately there were no beds available. The patient also initially declined to be transferred and so medicine was consulted for admission. I did discuss goals of care with the patient and he would like to be a full code. History - Past Medical History Cardiovascular: reports: Hypertension, High cholesterol Respiratory: reports: Pneumonia, Shortness of breath Endocrine/Autoimmune: reports: Type 2 diabetes, HyPOthyroidism GI: reports: Ulcers : reports: Benign prostate hypertrophy HEENT: reports: None Psych: reports: None Musculoskeletal: reports: None Derm: reports: None MRSA Hx?: No - Past Surgical History Cardiovascular: reports: CABG - Family & Social History Family History Comment/Other: His father from an unknown cancer. His mother from natural causes. Living arrangement: At home Living Situation: With family Social History Notes: He lives at home with his , daughter and son-in-law. He no longer smokes but smoked 2 packs a day for about 20 years and quit over 20 years ago. He does not drink alcohol. - POLST Patient has POLST: No Meds/Allgy - Home Medications Home Medications: Ambulatory Orders Medication Instructions Recorded Confirmed Aspirin [Aspir 81] 81 mg PO DAILY PRN 02/25/15 03/02/21 Carvedilol [Coreg] 3.125 mg PO BID 02/25/15 03/02/21 Fenofibrate Nanocrystallized 145 mg PO DAILY 02/25/15 03/02/21 [Tricor] Levothyroxine [Synthroid] 112 mcg PO QDAC 02/25/15 03/02/21 Multivitamin with Minerals 1 each PO DAILY 02/25/15 03/02/21 [Multiple Vitamin] Rosuvastatin Calcium [Crestor] 20 mg PO DAILY 02/25/15 03/02/21 Tamsulosin [Flomax] 0.4 mg PO DAILY 02/25/15 03/02/21 Acetaminophen [Tylenol Extra 1 - 2 tab PO Q8HR PRN 03/15/20 03/02/21 Strength] Ascorbic Acid [Vitamin C] 1 tab PO DAILY 03/15/20 03/02/21 Finasteride 1 tab PO QPM 03/15/20 03/02/21 Niacin 1 tab PO QID 03/15/20 03/02/21 Nitroglycerin [Nitrostat] 1 tab PO DAILY PRN 03/15/20 03/02/21 Pramipexole Di-HCl [Mirapex] 1 tab PO DAILY 03/15/20 03/02/21 Sertraline [Zoloft] 1 tab PO DAILY 03/15/20 03/02/21 Vitamin B Complex 1 cap PO DAILY 03/15/20 03/02/21 amLODIPine [Norvasc] 10 mg PO DAILY 03/15/20 03/02/21 diphenhydrAMINE [Benadryl] 1 cap PO Q6HR PRN 03/15/20 03/02/21 hydrALAZINE [Apresoline] 1 tab PO DAILY 03/15/20 03/02/21 traMADol [Ultram] 50 mg PO Q8HR 03/15/20 03/02/21 Diltiazem HCl [Diltiazem 12Hr ER] 1 cap PO DAILY 03/02/21 03/02/21 Furosemide [Lasix] 1 tab PO DAILY 03/02/21 03/02/21 Insulin Glargine [Lantus Solostar] 25 unit SQ HS 03/02/21 03/02/21 Insulin Lispro [Humalog] 0 - 6 units SQ TID 03/02/21 03/02/21 Isosorbide Mononitrate [Isosorbide 1 tab PO DAILY 03/02/21 03/02/21 Mononitrate ER] Losartan Potassium [Cozaar] 1 tab PO DAILY 03/02/21 03/02/21 Pantoprazole [Protonix] 1 tab PO BID 03/02/21 03/02/21 Rivaroxaban [Xarelto] 1 tab PO DAILY 03/02/21 03/02/21 - Allergies Allergies/Adverse Reactions: Allergies Allergy/AdvReac Type Severity Reaction Status Date / Time No Known Drug Allergies Allergy Verified 03/02/21 08:27 Review of Systems - Constitutional Constitutional: denies: Fever, Chills - Cardiovascular Cariovascular: reports: Edema, Lightheadedness, Exertional dyspnea, Decr. exercise tolerance. denies: Chest pain - Respiratory Respiratory: reports: Cough, SOB at rest, SOB with exertion. denies: Sputum production - Gastrointestinal Gastrointestinal: denies: Abdominal pain, Constipation, Nausea, Vomiting - Genitourinary Genitourinary: denies: Dysuria, Frequency, Urgency - Integumentary Integumentary: denies: Rash - Neurological Neurological: reports: Dizziness. denies: General weakness, Focal weakness - Hematologic/Lymphatic Hematologic/Lymphatic: reports: Bruising. denies: Anemia, Bleeding tendencies - All Other Systems All Other Systems: reports: Reviewed and negative Exam - Vital Signs Reviewed Vital Signs: Yes Vital Signs: Vital Signs x48h Temp Pulse Resp BP Pulse Ox 03/02/21 13:26 90 21 148/92 H 98 03/02/21 12:32 85 19 163/79 H 98 03/02/21 12:22 92 20 188/94 H 98 05/14/21 10:08 91 25 H 97 03/02/21 09:54 88 27 H 164/72 H 98 03/02/21 09:17 97 03/02/21 09:16 121 H 27 H 93 03/02/21 09:07 95 03/02/21 08:16 36.0 C L 121 H 29 H 220/101 H 95 - Physical Exam General Appearance: positive: No acute distress, Alert Eyes Bilateral: positive: Normal inspection, Conjunctivae nml ENT: positive: ENT inspection nml, Other (Nasal cannula in place.) Neck: positive: Nml inspection Respiratory: positive: No respiratory distress. negative: Wheezes, Rales Cardiovascular: negative: Irregularly irregular, Tachycardia, Systolic murmur Abdomen: positive: Non-tender, No distention. negative: Tenderness Skin: positive: Warm, Dry Extremities: positive: Pedal edema (+1 pitting edema in bilateral lower extremities.) Neurologic/Psychiatric: negative: Disoriented to person, Disoriented to place Conclusion/Plan - Diagnosis Diagnosis: 1) NSTEMI - Plan Plan: The patient quite clearly has a NSTEMI and this is the cause of his dyspnea. Although his repeat EKG shows improvement in the ST depressions, his troponin has tripled from 1000 to 3000. I spent over 60 minutes discussing with the patient and his daughter, Juanita, regarding goals of care and potential management of this NSTEMI. We discussed that one option includes medical management alone and that this could be done at our facility. The patient states that he did not prefer to be transferred and did not want any procedures at this time and that he would consider an angiogram a few years later down the road. We then discussed his CODE STATUS and he states that he wanted to be a full code and that he has a few years left to live. I informed him that if his goal is to be a full code and to prolong his life as long as possible and the ideal management of this NSTEMI would be transfer to higher level of care for cardiac catheterization and intervention. We discussed that medical management alone is not optimal as it does not treat the underlying coronary artery disease and that he can have recurrent episodes of ischemia in the future. His daughter, Juanita, then joined us and we also discussed the 2 treatment options which would include medical management alone or transfer to higher level of care for cardiac intervention. We discussed that an angiogram is minimally invasive and this does not involve open heart surgery. After further discussion with both of them, the patient was agreeable to be transferred to a higher level of care. He preferred to go to [facility] or [facility] as he felt [place] was too far. This was discussed with the emergency department provider, Dr. Roblero, and the patient was ultimately transferred to the emergency department at [facility] in [place] as [facility] and [facility] in [place] both had no beds available. I did recommend administering aspirin 325 mg in the emergency department. The patient is already on Xarelto so he is anticoagulated. Approximately 65 minutes of time was provided to this patient discussing treatment options and coordinating care with the emergency department provider as well as speaking with family on treatment options. - Lab Results Lab results reviewed: Yes Dereck Bones: 03/02/21 08:47 03/02/21 08:47 - Diagnostic Imaging Results Diagnostic Imaging Results: positive: Final report reviewed - EKG Results EKG Interpreted Independently: Yes EKG Findings: I did not see his initial EKG but repeat EKG after his heart rate improved showed atrial fibrillation with a right bundle branch block. Slight ST depressions in the lateral leads.
== END 2021-03-02 14:03 | disposition short-term general hospital (02) ==
LOC: EDUNIT# → ED 08:15
DX: I21.4 Non-ST elevation (NSTEMI) myocardial infarction (principal); I10 Essential (primary) hypertension; I48.91 Unspecified atrial fibrillation; E11.9 Type 2 diabetes mellitus without complications; Z79.4 Long term (current) use of insulin; Z79.01 Long term (current) use of anticoagulants; Z79.82 Long term (current) use of aspirin; I45.10 Unspecified right bundle-branch block; E86.0 Dehydration; Z95.1 Presence of aortocoronary bypass graft
CPT/HCPCS: 36415; 71045; 80053; 83690; 83880; 84484; 85025; 87631; 93005; 96361; 96374; 99284; 99285; A9270; 0202U

== ENCOUNTER 2021-03-02 14:04 | Outpatient (CLI) | payer MEDICARE, OTHER | END 2021-03-02 14:05 | disposition short-term general hospital (02) | LOC: EMS 14:04 | PROVIDERS: ATTEND Emergency Medicine | DX: I21.4 Non-ST elevation (NSTEMI) myocardial infarction (principal) | CPT/HCPCS: A0425; A0428 ==

== ENCOUNTER 2021-03-14 10:43 | Outpatient (CLI) | payer MEDICARE, OTHER ==
[2021-03-14 18:26] LABS: THYROID STIMULATING HORMONE 0.21 uIU/mL (0.34-5.60)
[2021-03-14 18:40] LABS: CALCIUM 9.1 mg/dL (8.5-10.3); CREATININE 4.2 mg/dL (0.6-1.2); POTASSIUM 4.7 mmol/L (3.5-5.0)
[2021-03-14 19:00] LABS: FREE T4 (FREE THYROXINE) 1.19 ng/dL (0.58-1.64)
[2021-03-14 20:20] LABS: ESTIMATED AVERAGE GLUCOSE 146 mg/dL (70-100); HEMOGLOBIN A1c% 6.7 % (4.27-6.07)
== END 2021-03-14 23:59 | disposition home or self-care (01) ==
LOC: LAB.WCP 10:43
PROVIDERS: ATTEND Family Medicine
DX: I12.9 Hypertensive chronic kidney disease with stage 1 through stage 4 chronic kidney disease, or unspecified chronic kidney disease (principal); E11.22 Type 2 diabetes mellitus with diabetic chronic kidney disease; N18.4 Chronic kidney disease, stage 4 (severe); E03.9 Hypothyroidism, unspecified; G47.30 Sleep apnea, unspecified; I48.91 Unspecified atrial fibrillation
CPT/HCPCS: 36415; 80048; 82043; 82570; 83036; 84439; 84443

== ENCOUNTER 2021-03-15 10:51 | Emergency (ER) | payer MEDICARE, OTHER ==
--- OUTSIDE RECORDS SUMMARY | 2021-03-15 10:54 | EXTERNAL MEDICAL SUMMARY RPT | Continuity of Care Document ---
: Demographics Phone Unavailable Preferred Language Uzbek Marital Status Unknown Gnosticism Affiliation Unknown Race Unknown Ethnic Group Unknown Author Organization [place] Address [address] [phone] Phone Care Team Providers Name Role Phone Chetan Campos Unavailable Unavailable Allergies Encounters Medications date description facility [id number] Oxycodone Hydrochloride 5 MG Oral Table [facility] 20210123 Hydralazine Hydrochloride 50 MG Oral [facility] [id number] Pramipexole dihydrochloride 0.125 MG Or al Tablet [facility] [id number] 3 ML Insulin Glargine 100 UNT/ML Prefil led [facility] [id number] 24 HR Isosorbide Mononitrate 60 MG Exte [facility] Tablet 23233526 Furosemide [address] [facility] [id number] Acetaminophen 325 MG Oral Capsule [facility] 82191227 Nitroglycerin 0.4 MG Sublingual Tablet [facility] 20210123 Hydralazine Hydrochloride 50 MG Oral [facility] 20210123 Pramipexole dihydrochloride 0.125 MG Or al Tablet [facility] [id number] 3 ML Insulin Glargine 100 UNT/ML Prefil led [facility] [id number] 24 HR Isosorbide Mononitrate 60 MG Exte [facility] Tablet 11596105 Furosemide [address] 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
--- OUTSIDE RECORDS SUMMARY | 2021-03-15 11:27 | EXTERNAL MEDICAL SUMMARY RPT | Continuity of Care Document ---
: Demographics Phone Unavailable Preferred Language Marshallese Marital Status Unknown Moravian Affiliation Unknown Race Unknown Ethnic Group Unknown Author Organization [place] Address [address] [phone] Phone Care Team Providers Name Role Phone Chetan Campos Unavailable Unavailable Allergies Encounters Medications date description facility [id number] Oxycodone Hydrochloride 5 MG Oral Table [facility] 20210123 Hydralazine Hydrochloride 50 MG Oral [facility] 02158628 Pramipexole dihydrochloride 0.125 MG Or al Tablet [facility] 45779144 3 ML Insulin Glargine 100 UNT/ML Prefil led [facility] 96675752 24 HR Isosorbide Mononitrate 60 MG Exte [facility] Tablet 39359277 Furosemide 40 MG Oral Tablet [facility] 32467725 Acetaminophen 325 MG Oral Capsule [facility] 24856221 Nitroglycerin 0.4 MG Sublingual Tablet [facility] 20210123 Hydralazine Hydrochloride 50 MG Oral [facility] 20210123 Pramipexole dihydrochloride 0.125 MG Or al Tablet [facility] 16105548 3 ML Insulin Glargine 100 UNT/ML Prefil led [facility] 40103475 24 HR Isosorbide Mononitrate 60 MG Exte [facility] Tablet 46445833 Furosemide 40 MG Oral Tablet [facility] 06960081 Acetaminophen 325 MG Oral Capsule [facility] 47456618 Nitroglycerin 0.4 MG Sublingual Tablet [facility] Problems date description facility [id number] 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
--- NOTE | 2021-03-15 11:34 | XRAY Report ---
PROCEDURE: Chest 1 View X-Ray INDICATIONS: Chest pain TECHNIQUE: One view of the chest was acquired. COMPARISON: 03/02/2021 chest radiograph FINDINGS: Surgical changes and devices: Median sternotomy changes with multiple fractured sternal wires similar to the prior study. Lungs and pleura: There may be a small left pleural effusion as there is some blunting and hazy opaci ty in the left costophrenic angle. No definite airspace opacity. Mediastinum: Mediastinal contours appear normal. Heart size is normal. Bones and chest wall: No suspicious bony lesions. Overlying soft tissues appear unremarkable. IMPRESSION: Possible small left pleural effusion. Reviewed by: Everardo Roche MD on 03/15/2021 11:33 AM PDT Approved by: Everardo Roche MD on 03/15/2021 11:33 AM PDT Station ID: [id number]
[2021-03-15 11:57] LABS: BASOPHILS % (AUTO) 0.6 %; EOSINOPHILS # (AUTO) 0.2 10^3/uL (0.0-0.7); EOSINOPHILS % (AUTO) 2.9 %; HCT - HEMATOCRIT 29.8 % (42.0-52.0); HGB - HEMOGLOBIN 9.2 g/dL (14.0-18.0); LYMPHOCYTES % (AUTO) 18.9 %; MEAN CORPUSCULAR HEMOGLOBIN 28.6 pg (27.0-31.0); MEAN CORPUSCULAR HGB CONC 30.9 g/dL (32.0-36.0); MEAN CORPUSCULAR VOLUME 92.5 fL (80.0-94.0); MEAN PLATELET VOLUME 12.9 fL (7.4-11.4); MONOCYTES # (AUTO) 0.5 10^3/uL (0.0-1.0); MONOCYTES % (AUTO) 9.9 %; NEUTROPHILS # (AUTO) 3.7 10^3/uL (1.5-6.6); NEUTROPHILS % (AUTO) 67.1 %; PLT - PLATELET COUNT 165 10^3/uL (130-450); RED BLOOD COUNT 3.22 10^6/uL (4.70-6.10); RED CELL DISTRIBUTION WIDTH 17.4 % (12.0-15.0); WHITE BLOOD COUNT 5.4 x10^3/uL (4.8-10.8)
[2021-03-15] MEDS ORDERED: SODIUM CHLORIDE 0.9% 1,000 ML IV STA (12:16)
--- NOTE | 2021-03-15 12:19 | ED Physician Documentation ---
History of Present Illness - Stated complaint Stated Complaint: REFERRED LAB LEVEL HIGH - Chief complaint Chief Complaint: General - History obtained from History obtained from: Patient, Family - History of Present Illness Timing: Yesterday - Additonal information Additional information: 80-year-old male seen earlier in the month with a history of atrial flutter with rapid ventricular rate and NSTEMI. He was admitted into the hospital at [facility] in [facility] he did have some acute kidney injury thought to be related to his dye load and he has been placed on Lasix. He has had his dose increased to twice per day. He has had some blood work done and there is concern for worsening kidney injury with a CR of 4.2. Review of Systems Constitutional: denies: Fever Eyes: denies: Decreased vision Ears: denies: Ear pain, Drainage/discharge Nose: denies: Congestion Throat: denies: Sore throat Cardiac: denies: Chest pain / pressure, Palpitations Respiratory: denies: Dyspnea, Cough GI: denies: Abdominal Pain, Nausea, Vomiting : denies: Dysuria, Frequency Skin: denies: Rash Musculoskeletal: denies: Back pain, Extremity pain, Extremity swelling, Joint swelling Neurologic: denies: Generalized weakness, Focal weakness, Numbness PD PAST MEDICAL HISTORY - Past Medical History Past Medical History: Yes Cardiovascular: Hypertension, High cholesterol, [place] Respiratory: Pneumonia, Shortness of breath Endocrine/Autoimmune: Type 2 diabetes, HyPOthyroidism GI: Ulcers : Benign prostate hypertrophy HEENT: None Psych: None Musculoskeletal: None Derm: None - Past Surgical History Past Surgical History: Yes Cardiovascular: CABG - Present Medications Home Medications: Ambulatory Orders Medication Instructions Recorded Confirmed Carvedilol [Coreg] 25 mg PO BID 02/25/15 03/15/21 Fenofibrate Nanocrystallized 160 mg PO DAILY 02/25/15 03/15/21 [Tricor] Levothyroxine [Synthroid] 125 mcg PO QDAC 02/25/15 03/15/21 Multivitamin with Minerals 1 each PO DAILY 02/25/15 03/15/21 [Multiple Vitamin] Rosuvastatin Calcium [Crestor] 20 mg PO DAILY 02/25/15 03/15/21 Tamsulosin [Flomax] 0.8 mg PO DAILY 02/25/15 03/15/21 Acetaminophen [Tylenol Extra 1 - 2 tab PO Q8HR PRN 03/15/20 03/15/21 Strength] Ascorbic Acid [Vitamin C] 1 tab PO DAILY 03/15/20 03/15/21 Finasteride 1 tab PO DAILY 03/15/20 03/15/21 Niacin 1 tab PO QID 03/15/20 03/15/21 Nitroglycerin [Nitrostat] 1 tab PO DAILY PRN 03/15/20 03/15/21 Pramipexole Di-HCl [Mirapex] 0.25 mg PO DAILY 03/15/20 03/15/21 Sertraline [Zoloft] 1 tab PO DAILY 03/15/20 03/15/21 Vitamin B Complex 1 cap PO DAILY 03/15/20 03/15/21 amLODIPine [Norvasc] 10 mg PO DAILY 03/15/20 03/15/21 diphenhydrAMINE [Benadryl] 1 cap PO Q6HR PRN 03/15/20 03/15/21 hydrALAZINE [Apresoline] 1 tab PO DAILY 03/15/20 03/15/21 traMADol [Ultram] 50 mg PO QPM 03/15/20 03/15/21 Furosemide [Lasix] 1 tab PO DAILY 03/02/21 03/15/21 Insulin Glargine [Lantus Solostar] 25 unit SQ HS 03/02/21 03/15/21 Insulin Lispro [Humalog] 0 - 6 units SQ TID 03/02/21 03/15/21 Isosorbide Mononitrate [Isosorbide 1 tab PO DAILY 03/02/21 03/15/21 Mononitrate ER] Losartan Potassium [Cozaar] 1 tab PO DAILY 03/02/21 03/15/21 Pantoprazole [Protonix] 1 tab PO BID 03/02/21 03/15/21 Apixaban [Eliquis] 2.5 mg BID 03/15/21 03/15/21 Clopidogrel [Plavix] 75 mg DAILY 03/15/21 03/15/21 Fluticasone [Flonase] 2 spr DAILY 03/15/21 03/15/21 - Allergies Allergies/Adverse Reactions: Allergies Allergy/AdvReac Type Severity Reaction Status Date / Time No Known Drug Allergies Allergy Verified 03/15/21 11:03 - Social History Does the pt smoke?: No Smoking Status: Never smoker Does the pt drink ETOH?: No Does the pt have substance abuse?: No - Immunizations Immunizations are current?: Yes - POLST Patient has POLST: No PD ED PE NORMAL - Vitals Vital signs reviewed: Yes (hypertensive mild ) - General General: Alert and oriented X 3, No acute distress, Well developed/nourished - HEENT HEENT: Atraumatic, PERRL, EOMI - Neck Neck: Supple, no meningeal sign, No bony TTP - Cardiac Cardiac: RRR, No murmur - Respiratory Respiratory: No respiratory distress, Clear bilaterally - Abdomen Abdomen: Soft, Non tender, Non distended, No organomegaly - Back Back: No CVA TTP, No spinal TTP - Derm Derm: Normal color, Warm and dry, No rash - Extremities Extremities: No deformity, No edema - Neuro Neuro: Alert and oriented X 3, hall worker 2-12 intact, No motor deficit, No sensory deficit, Normal speech Eye Opening: Spontaneous Motor: Obeys Commands Verbal: Oriented GCS Score: 15 - Psych Psych: Normal mood, Normal affect Results - Vitals Vitals: Vital Signs - 24 hr 03/15/21 03/15/21 03/15/21 11:00 12:00 13:00 Temperature 36.0 C L Heart Rate 62 59 L 58 L Respiratory 20 16 18 Rate Blood Pressure 137/39 H 148/53 H 132/47 H O2 Saturation 97 97 97 03/15/21 03/15/21 14:00 15:00 Temperature Heart Rate 60 65 Respiratory 18 18 Rate Blood Pressure 145/53 H 151/59 H O2 Saturation 97 20 L Oxygen O2 Source [] Nasal cannula O2 Source [] Nasal cannula O2 Source Room air - EKG (time done) 1122 Rate: Rate (enter#) (57) Intervals: RBBB Compare to prior EKG: Changed from prior EKG (SPT 03-02-2021 atrial flutter has resolved.) Computer interpretation: Agree with computer - Labs Labs: Laboratory Tests 03/15/21 03/15/21 03/15/21 11:30 11:30 11:30 WBC 5.4 RBC 3.22 L Hgb 9.2 L Hct 29.8 L MCV 92.5 MCH 28.6 MCHC 30.9 L RDW 17.4 H Plt Count 165 MPV 12.9 H Neut # (Auto) 3.7 Lymph # (Auto) 1.0 L [place] # (Auto) 0.5 Eos # (Auto) 0.2 Baso # (Auto) 0.0 Absolute Nucleated RBC 0.00 Nucleated RBC % 0.0 Sodium 138 Potassium 4.2 Chloride 107 Carbon Dioxide 20 L Anion Gap 11.0 BUN 126 H* Creatinine 3.8 H Estimated GFR (MDRD) 15 L Glucose 142 H Calcium 8.9 Total Bilirubin 0.6 AST 24 ALT 13 Alkaline Phosphatase 39 L Troponin I High Sens 38.4 H* Total Protein 7.2 Albumin 3.7 Globulin 3.5 Albumin/Globulin Ratio 1.1 Lipase 30 03/15/21 14:37 WBC RBC Hgb Hct MCV MCH MCHC RDW Plt Count MPV Neut # (Auto) Lymph # (Auto) [place] # (Auto) Eos # (Auto) Baso # (Auto) Absolute Nucleated RBC Nucleated RBC % Sodium Potassium Chloride Carbon Dioxide Anion Gap BUN Creatinine Estimated GFR (MDRD) Glucose Calcium Total Bilirubin AST ALT Alkaline Phosphatase Troponin I High Sens 38.1 H* Total Protein Albumin Globulin Albumin/Globulin Ratio Lipase - Rads (name of study) CXR Radiology: Prelim report reviewed (Impression: Possible small left pleural effusion.), EMP read indepedently, See rad report PD MEDICAL DECISION MAKING - ED course Complexity details: reviewed old records, reviewed results, re-evaluated patient, considered differential, d/w patient, d/w family ED course: 80-year-old male with a history of recent NSTEMI secondary to atrial flutter with a rapid ventricular response has been in to see his primary care doctor in follow-up and his kidney function is noted to be worse. He did have some trouble in the hospital with diuresis and kidney function thought to be related to dye load. He has been given instructions to increase fluid and his lasix has been increased to bid. Here in the ED his IVC is collapsing, there is no edema and he is given IV saline. We will continue to push fluids and lasix and have him record his daily weight. He has follow up in 5 days. Departure - Departure Disposition: 01 Home, Self Care Clinical Impression: Dehydration, Acute kidney injury Condition: Stable Instructions: ED Dehydration, Injury Acute Kidney Dc Follow-Up: Chetan Campos MD [Primary Care Provider] - Comments: Today it appears your acute kidney injury is somewhat improved from 2 days ago and the recommendation is to continue the current therapy which is increased fluids and Lasix. My recommendation is to record your weights daily and bring them in for follow-up to your primary care doctor if you develop overt shortness of breath that likely means there is fluid overload and you will need to see us here in the emergency department or take additional Lasix. If there is an overshoot to the diuretic you can become dehydrated and this can cause lightheadedness dizziness and syncope.
[2021-03-15 12:44] LABS: ALBUMIN 3.7 g/dL (3.2-5.5); ALBUMIN/GLOBULIN RATIO 1.1 (1.0-2.2); BILIRUBIN,TOTAL 0.6 mg/dL (0.2-1.0); CALCIUM 8.9 mg/dL (8.5-10.3); CREATININE 3.8 mg/dL (0.6-1.2); POTASSIUM 4.2 mmol/L (3.5-5.0); TOTAL PROTEIN 7.2 g/dL (6.7-8.2)
[2021-03-15] MEDS ORDERED: ACETAMINOPHEN 500 MG TABLET PO STA (14:53)
[2021-03-15 15:22] VITALS: BP 151/59
== END 2021-03-15 16:00 | disposition home or self-care (01) ==
LOC: ED 10:51
DX: N17.9 Acute kidney failure, unspecified (principal); E86.0 Dehydration; I10 Essential (primary) hypertension; I45.10 Unspecified right bundle-branch block; I48.92 Unspecified atrial flutter; E11.9 Type 2 diabetes mellitus without complications; Z79.4 Long term (current) use of insulin; Z95.1 Presence of aortocoronary bypass graft; Z79.01 Long term (current) use of anticoagulants
CPT/HCPCS: 36415; 71045; 80053; 83690; 84484; 85025; 93005; 96360; 96361; 99283; 99284; A9270

== ENCOUNTER 2021-03-20 08:00 | Outpatient (CLI) | payer MEDICARE, OTHER ==
[2021-03-20 18:11] LABS: HCT - HEMATOCRIT 30.5 % (42.0-52.0); HGB - HEMOGLOBIN 9.3 g/dL (14.0-18.0); MEAN CORPUSCULAR HEMOGLOBIN 29.1 pg (27.0-31.0); MEAN CORPUSCULAR HGB CONC 30.5 g/dL (32.0-36.0); MEAN CORPUSCULAR VOLUME 95.3 fL (80.0-94.0); MEAN PLATELET VOLUME 13.1 fL (7.4-11.4); RED BLOOD COUNT 3.2 10^6/uL (4.70-6.10); WHITE BLOOD COUNT 6.6 x10^3/uL (4.8-10.8)
[2021-03-20 18:38] LABS: CALCIUM 9.1 mg/dL (8.5-10.3); CREATININE 2.8 mg/dL (0.6-1.2); POTASSIUM 4.4 mmol/L (3.5-5.0); THYROID STIMULATING HORMONE 0.61 uIU/mL (0.34-5.60)
[2021-03-20 18:41] LABS: FREE T3 2.74 pg/mL (2.5-3.9)
[2021-03-20 18:42] LABS: FREE T4 (FREE THYROXINE) 0.98 ng/dL (0.58-1.64)
== END 2021-03-20 23:59 | disposition home or self-care (01) ==
LOC: LAB.WCP 08:00
PROVIDERS: ATTEND Family Medicine
DX: N18.4 Chronic kidney disease, stage 4 (severe) (principal); I50.9 Heart failure, unspecified; E03.9 Hypothyroidism, unspecified; I27.20 Pulmonary hypertension, unspecified
CPT/HCPCS: 36415; 80048; 83880; 84439; 84443; 84481; 85027

== ENCOUNTER 2021-04-11 08:00 | Outpatient (CLI) | payer MEDICARE, OTHER ==
[2021-04-11 19:39] LABS: CALCIUM 9.5 mg/dL (8.5-10.3); CREATININE 3.7 mg/dL (0.6-1.2); POTASSIUM 4.3 mmol/L (3.5-5.0)
== END 2021-04-11 23:59 | disposition home or self-care (01) ==
LOC: LAB.WCP 08:00
PROVIDERS: ATTEND Internal Medicine Nephrology
DX: N05.9 Unspecified nephritic syndrome with unspecified morphologic changes (principal)
CPT/HCPCS: 36415; 80048

== ENCOUNTER 2021-04-14 17:54 | Outpatient (CLI) | payer MEDICARE, OTHER | END 2021-04-14 17:55 | disposition critical access hospital (66) | LOC: EMS 17:54 | DX: R55 Syncope and collapse (principal) | CPT/HCPCS: A0425; A0429 ==

== ENCOUNTER 2021-04-19 12:57 | Outpatient (CLI) | payer MEDICARE, OTHER ==
[2021-04-19 18:09] LABS: CREATININE 2.1 mg/dL (0.6-1.2); POTASSIUM 3.6 mmol/L (3.5-5.0)
== END 2021-04-19 23:59 | disposition home or self-care (01) ==
LOC: LAB.WCP 12:57
PROVIDERS: ATTEND Internal Medicine Nephrology
DX: N05.9 Unspecified nephritic syndrome with unspecified morphologic changes (principal)
CPT/HCPCS: 36415; 80048

== ENCOUNTER 2021-05-08 08:00 | Outpatient (CLI) | payer MEDICARE, OTHER ==
[2021-05-08 18:45] LABS: CREATININE 2.2 mg/dL (0.6-1.2); POTASSIUM 4.1 mmol/L (3.5-5.0)
== END 2021-05-08 23:59 | disposition home or self-care (01) ==
LOC: LAB.WCP 08:00
PROVIDERS: ATTEND Internal Medicine Nephrology
DX: N05.9 Unspecified nephritic syndrome with unspecified morphologic changes (principal)
CPT/HCPCS: 36415; 80048

== ENCOUNTER 2021-06-08 10:05 | Outpatient (CLI) | payer MEDICARE, OTHER ==
[2021-06-08 12:20] LABS: ESTIMATED AVERAGE GLUCOSE 126 mg/dL (70-100)
[2021-06-08 12:24] LABS: CALCIUM 9.2 mg/dL (8.5-10.3); CREATININE 2.3 mg/dL (0.6-1.2); POTASSIUM 3.9 mmol/L (3.5-5.0)
[2021-06-08 12:28] LABS: CREATININE,URINE 57.5 mg/dL; MICROALBUM/CREATININE RATIO,UR 217.4 ug/mg (<30.0); MICROALBUMIN,URINE 12.5 mg/dL (0-300.0)
== END 2021-06-08 23:59 | disposition home or self-care (01) ==
LOC: LAB.WCP 10:05
PROVIDERS: ATTEND Family Medicine
DX: I12.9 Hypertensive chronic kidney disease with stage 1 through stage 4 chronic kidney disease, or unspecified chronic kidney disease (principal); E11.22 Type 2 diabetes mellitus with diabetic chronic kidney disease; N18.4 Chronic kidney disease, stage 4 (severe); E03.9 Hypothyroidism, unspecified; G47.33 Obstructive sleep apnea (adult) (pediatric); I48.91 Unspecified atrial fibrillation; I25.10 Atherosclerotic heart disease of native coronary artery without angina pectoris; Z79.01 Long term (current) use of anticoagulants
CPT/HCPCS: 36415; 80048; 82043; 82570; 83036

== ENCOUNTER 2021-07-10 08:00 | Outpatient (CLI) | payer MEDICARE, OTHER ==
[2021-07-10 18:31] LABS: CALCIUM 9.6 mg/dL (8.5-10.3); CREATININE 2.4 mg/dL (0.6-1.2); POTASSIUM 4.2 mmol/L (3.5-5.0)
== END 2021-07-10 23:59 | disposition home or self-care (01) ==
LOC: LAB.WCP 08:00
PROVIDERS: ATTEND Internal Medicine Nephrology
DX: N05.9 Unspecified nephritic syndrome with unspecified morphologic changes (principal)
CPT/HCPCS: 36415; 80048

== ENCOUNTER 2021-07-28 06:55 | Outpatient (CLI) | payer MEDICARE, OTHER | END 2021-07-28 06:56 | disposition home or self-care (01) | LOC: LAB 06:55 | PROVIDERS: ATTEND Specialist | DX: Z01.812 Encounter for preprocedural laboratory examination (principal); Z20.822 Contact with and (suspected) exposure to COVID-19 ==

== ENCOUNTER 2021-09-12 15:44 | Outpatient (CLI) | payer MEDICARE, OTHER | END 2021-09-12 15:45 | disposition EMS.NT | LOC: EMS 15:44 | DX: S61.419A Laceration without foreign body of unspecified hand, initial encounter (principal); W18.30XA Fall on same level, unspecified, initial encounter; Y93.E8 Activity, other personal hygiene; Y92.002 Bathroom of unspecified non-institutional (private) residence as the place of occurrence of the external cause ==

== ENCOUNTER 2021-09-20 05:50 | Outpatient (CLI) | payer MEDICARE, OTHER | END 2021-09-20 05:51 | disposition E | LOC: EMS 05:50 | DX: I46.9 Cardiac arrest, cause unspecified (principal) | CPT/HCPCS: A0425; A0429 ==